=== PATIENT | female | born 1935 | race Caucasian/White ===

== ENCOUNTER 2020-08-03 15:15 | Emergency (ER) | payer OTHER | END 2020-08-03 20:05 | disposition home or self-care (01) | LOC: ER1 15:15 | DX: S93.601A Unspecified sprain of right foot, initial encounter (principal); I11.9 Hypertensive heart disease without heart failure; Z79.899 Other long term (current) drug therapy; Z88.8 Allergy status to other drugs, medicaments and biological substances; X58.XXXA Exposure to other specified factors, initial encounter; Y92.009 Unspecified place in unspecified non-institutional (private) residence as the place of occurrence of the external cause | CPT/HCPCS: 73610; 73630; 96372; 99283; J1885 ==

== ENCOUNTER → 2021-02-03 | Outpatient (CLI) | payer OTHER ==
[2021-02-03 12:13] LABS: HEMOGLOBIN 13.4 gm/dl (12.3-15.3); RED BLOOD COUNT 4.57 M/UL (4.00-5.10); WHITE BLOOD COUNT 5.7 K/UL (4.5-11.0)
[2021-02-03 12:30] LABS: BUN/CREATININE RATIO 18 (0-10)
== END ==
LOC: CT 11:30
PROVIDERS: Internal Medicine Hematology & Oncology
DX: C82.91 Follicular lymphoma, unspecified, lymph nodes of head, face, and neck (principal)
CPT/HCPCS: 36415; 70491; 80053; 83615; 85027; Q9967